=== PATIENT | female | born 1950 | race Caucasian/White ===

== ENCOUNTER 2018-07-19 10:33 | Day surgery (SDC) | payer MEDICARE, OTHER ==
[~2018-07-19 10:33] MED LIST: CEFAZOLIN 2 Gram 2 GM/50 ML BAG IVPB ONE; CELECOXIB 100 MG CAPSULE PO ONE; FAMOTIDINE 20MG TABLET PO ONE; MECLIZINE 25 MG TABLET PO ONE; METOCLOPRAMIDE 10 MG TABLET PO ONE; VANCOMYCIN HCL 1,000 MG in DEXTROSE 5 % IN WATER 250 ML IVPB ONE
[2018-07-19] MEDS ORDERED: 0.9 % SODIUM CHLORIDE 10 ML VIAL IVP ONE (10:34)
[2018-07-19] MEDS ORDERED: MIDAZOLAM HCL 2MG/2ML VIAL IV ONE (10:34)
[2018-07-19] MEDS ORDERED: KETAMINE HCL 100MG/1ML VIAL INJ ONE (10:34)
[2018-07-19] MEDS ORDERED: GLYCOPYRROLATE 0.2 MG/ML ML IV ONE (10:34)
[2018-07-19] MEDS ORDERED: TRANEXAMIC ACID 1,000 MG/10 ML ML IV ONE (10:34)
[2018-07-19] MEDS ORDERED: DEXAMETHASONE 4 MG/ML 1ML VIAL IVP ONE (10:34)
[2018-07-19] MEDS ORDERED: PROPOFOL 10 MG/ML VIAL IV ONE (10:34)
[2018-07-19] MEDS ORDERED: ROPIVACAINE HCL (NAROPIN) /PF 5MG/ML 20ML VIAL IV ONE (10:34)
[2018-07-19] MEDS ORDERED: RINGERS SOLUTION,LACTATED 1,000 ML IV ONE ×3 (11:15→15:28)
[2018-07-19] MEDS ORDERED: SODIUM CHLORIDE 0.9% IV ONE (11:15)
[2018-07-19] MEDS ORDERED: GENTAMICIN SULFATE IV ONE (11:15)
[2018-07-19 11:38] LABS: ABO GROUP O; ANTIBODY SCREEN NEGATIVE (NEGATIVE); RH TYPE POSITIVE
[2018-07-19] MEDS ORDERED: BUPIVACAINE 0.5% W/EPI MPF 30 ML VIAL SQ ONE (15:02)
[2018-07-19] MEDS ORDERED: ACETAMINOPHEN 325 MG TAB PO PRN (16:26)
[2018-07-19] MEDS ORDERED: DIPHENHYDRAMINE HCL 25 MG CAPSULE PO PRN (16:26)
[2018-07-19] MEDS ORDERED: ONDANSETRON HCL IV 4 MG/2 ML VIAL IVP PRN (16:26)
[2018-07-19] MEDS ORDERED: NALOXONE 0.4 MG/1 ML VIAL IVP PRN (16:26)
[2018-07-19] MEDS ORDERED: KETOROLAC 30 MG/ML VIAL IVP PRN ×2 (16:26)
[2018-07-19] MEDS ORDERED: HYDROCODONE/APAP 10/325 TABLET PO PRN (16:26)
[2018-07-19] MEDS ORDERED: MAGNESIUM HYDROXIDE 30 ML UDC PO PRN (16:26)
[2018-07-19] MEDS ORDERED: TRAMADOL HCL 50 MG TABLET PO PRN (16:26)
[2018-07-19] MEDS ORDERED: BISACODYL 10 MG SUPP RC PRN (16:26)
[2018-07-19] MEDS ORDERED: ZOLPIDEM TARTRATE 5 MG TABLET PO PRN (16:26)
[2018-07-19] MEDS ORDERED: AL HYDROX/MAG HYDROX 30ML UD PO PRN (16:26)
[2018-07-19] MEDS ORDERED: HYDROMORPHONE HCL 2 MG/ML VIAL IM PRN (16:26)
[2018-07-19] MEDS ORDERED: ACETAMINOPHEN W/ CODEINE 300MG/60MG TABLET PO PRN ×2 (16:26)
[2018-07-19] MEDS ORDERED: CEFAZOLIN 2 Gram 2 GM/50 ML BAG IVPB SCH (16:30)
[2018-07-19] MEDS ORDERED: ALBUTEROL HFA 8 GM INHALER INH PRN (16:51)
[2018-07-19] MEDS ORDERED: ALBUTEROL SULFATE (0.083%) 2.5 MG/3 ML NEB INH PRN (16:51)
[2018-07-19] MEDS: HYDROCODONE/APAP 10/325 TABLET PO PRN ×2 (19:20→22:35)
[2018-07-19] MEDS: DOCUSATE SODIUM 100 MG CAPSULE PO SCH (22:35)
[2018-07-19] MEDS: CEFAZOLIN 1G VIAL IVP SCH (22:36)
[2018-07-20] MEDS: POTASSIUM CHLORIDE/D5-0.9%NACL 20 MEQ/1,000 ML BAG IV SCH ×3 (01:13→10:41)
[2018-07-20] MEDS: HYDROCODONE/APAP 10/325 TABLET PO PRN ×4 (02:59→13:35)
[2018-07-20] MEDS: CEFAZOLIN 1G VIAL IVP SCH ×3 (05:50→15:35)
[2018-07-20 06:48] LABS: HEMATOCRIT 33.4 % (35.0-47.0); HEMOGLOBIN 10.9 gm/dl (11.6-16.0)
[2018-07-20] MEDS ORDERED: LEVOTHYROXINE SODIUM 100 MCG TABLET PO SCH (07:00)
[2018-07-20] MEDS ORDERED: PANTOPRAZOLE SODIUM 40 MG TABLET PO SCH (07:00)
[2018-07-20 07:02] LABS: BLOOD UREA NITROGEN 9 mg/dL (8-23); CREATININE 0.6 mg/dL (0.5-0.9); EST GLOMERULAR FILTRATION RATE > 60 mL/min; GLUCOSE,RANDOM 161 mg/dL (74-109)
--- NOTE | 2018-07-20 08:50 | Operative Note ---
DATE OF SURGERY: 07/19/2018 PREOPERATIVE DIAGNOSIS: End-stage arthrosis of the left knee. POSTOPERATIVE DIAGNOSIS: End-stage arthrosis of the left knee. OPERATION: Cemented left total knee arthroplasty using Mel[employer]za [employer] Augustina II components with a size 5 Oxinium femur, a size 4 stem tibia baseplate, a 9 mm lipped highly crosslinked tibial insert, and a 32 mm all plastic patella. STAFF SURGEON: Logan Antonio MD ANESTHESIA: Spinal. PREPARATION: Chloraprep. INDIVIDUAL CONSIDERATIONS: None. PROCEDURE: The patient was taken to the operating room, placed supine on the operating room table. She had a successful induction of a spinal anesthetic. The left lower extremity was prepped and draped in the usual fashion. The limb was elevated and tourniquet was inflated to 250 mmHg. The patient had a midline approach to the knee. Sharp dissection carried down through skin and subcutaneous tissue. Small veins were coagulated with a Bovie. A medial arthrotomy was performed. The patella was everted and the knee was flexed. The patient had exposed bone in the medial and patellofemoral compartments. Fat pad was resected, ACL was sacrificed, and provisional anterior meniscectomies were performed. The capsule was released from the medial proximal tibia. The initial femoral ferry pilot hole was then made freehand. The intramedullary femoral cutting jig was placed. It was cut in 7.0 degrees of valgus and adjusted for rotation for a 10 mm resection. The initial transverse cut was then made. The skin guide was placed in the anterior and posterior ferry pilot holes. It was found that a size 5 would be appropriate. The anterior and posterior cuts followed by chamfer cuts were made. Osteophytes removed, and a size 5 trial was placed and found to fit well. The tibia was brought forward, and the remainder of the meniscal remnants removed with a Bovie. The extraarticular tibial cutting jig was placed. It was cut in neutral with a 3-degree AP slope. Care was taken to adjust for rotation and flexion using the extraarticular alignment guide and bony landmarks. It was set for a 9 mm resection keyed off the high lateral side and secured with pins. When cutting the tibia, care was taken to preserve the PCL insertion on the tibia. After removing osteophytes, I could fit a size 4. It was adjusted for rotation and secured with pins. With a 9 mm trial and femoral trial, there was excellent motion and stability. Ligamentous balance was thought to be normal. Femoral ferry pilot holes were impacted. Tri-flange tibial keel stamp was impacted, and these trial components were removed. The patient had a relatively thick patella, and roughly 9 mm of bone was removed with an oscillating saw. I could fit a 32 patella. The 3 ferry pilot holes were drilled. The tourniquet was let down briefly to get bleeders posteriorly and then placed back up again. The knee was then thoroughly irrigated out with pulsatile Betadine and saline to remove any visual or palpable debris. Bony surfaces were then dried. A size 4 stem tibia baseplate was cemented into place followed by impaction of the 9 mm lipped highly crosslinked tibial insert followed by cementing in the size 5 Oxinium femur followed by cementing in the 32 mm all plastic patella. The implant surfaces were compressed, excess cement was removed. After the cement had set, there was excellent motion and stability, ligamentous balance, rotation alignment, and patellofemoral tracking were normal. No lateral release was required. Tourniquet was let down. Hemostasis was obtained with a Bovie. The capsule, periosteum, skin, and subcu were infiltrated with 30 mL of 0.5% Marcaine with epinephrine. The capsule was then closed with a running #2 quill, subcu was closed in layers with running 0 quill, skin was closed with darian. The patient did receive 1 g of tranexamic acid IV preoperatively. I mixed 1 g of tranexamic acid with 30 mL of saline and injected into the knee through a sterile 18-gauge needle, and a sterile bulky compressive UMER-type dressing was applied. The patient tolerated the procedure well. Needle and sponge counts were correct. Estimated blood loss was minimal, and she was taken back to recovery in good condition. There were no complications. IVAN
[2018-07-20] MEDS ORDERED: FERROUS SULFATE 325 MG TAB PO SCH (10:00)
[2018-07-20] MEDS ORDERED: ATORVASTATIN 20 MG TABLET PO SCH (10:00)
[2018-07-20] MEDS ORDERED: RIVAROXABAN 10 MG TABLET PO SCH (10:00)
[2018-07-20] MEDS ORDERED: LEVOFLOXACIN 500 MG TABLET PO SCH (10:00)
[2018-07-20] MEDS ORDERED: METFORMIN 500 MG TABLET PO SCH (10:00)
[2018-07-20] MEDS ORDERED: LISINOPRIL 20 MG TABLET PO SCH (10:00)
[2018-07-20] MEDS: HYDROCHLOROTHIAZIDE 12.5 MG CAPSULE PO SCH ×3 (10:24→10:39)
[2018-07-20] MEDS: DOCUSATE SODIUM 100 MG CAPSULE PO SCH (10:25)
--- NOTE | 2018-07-20 12:40 | Rehab Evaluation ---
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 SKIN CA REMOVED FACE AND SHOULDERS C SCOPES DOUBLE MASTECTOMY 2016 PARTIAL HYST PMH - Respiratory Hx Respiratory Disorders Yes Hx Asthma Yes: SEASONAL AND WHEN SHES SICK Hx Bronchitis Yes Hx Pneumonia Yes Hx Sleep Apnea Yes: MILD IN PAST NO PROBLEMS NOW Hx of URI Yes: PT HAS HAD URI JUST FINISHING 3 RD COURSE OF ABX RESOLVING Comment: PT HAS INHALER AND NEBULIZER SHE USES WITH SEASON CHANGES AND WHEN ILL PMH - Cardiovascular Hx Cardiovascular Disorders Yes Hx Hypertension Yes: ON MEDS WITH GOOD CONTROL Exercise Tolerance Good Comment: HYPERLIPIDEMIA PMH - Neuro Hx Neurological Disorders Yes Hx Headaches Yes: WITH WEATHER CHANGES PMH - GI Hx Gastrointestinal Disorders Yes Hx Gastroesophageal Reflux Yes: ON MEDS WITH GOOD CONTROL PMH - Hx Genitourinary Disorders No PMH - Endocrine Hx Endocrine Disorders Yes Hx Diabetes Yes: DX MANY YEARS AGO Hx of NIDDM Yes: ON METFORMIN Comment: A1C 6 DOENT CHECK BLOOD SUGARS PMH - Musculoskeletal Hx Musculoskeletal Disorders Yes Hx Arthritis Yes: LEFT KNEE PMH - Psych Hx Psychiatric Problems No PMH - Hematology/Oncology Hx Hematology/Oncology Yes Disorders Hx Cancer Yes: SKIN AND BREAST HAD BILAT MASTECTOMY Hx Chemotherapy No Hx Radiation Therapy No Premorbid Status: Detail (Pt lives with spouse in a 2 story house. She has 3 steps at the front entrance, no railing and 6 steps at the rear entrance with railings. She is planning to stay on the main level initially. She has a claw foot bathtub on the second story and a standard height toilet, no grab bars. She is typically responsible for all home mgmt, meal prep and laundry although her spouse will be assisting after discharge. She has a 2 wheeled walker, canes and a wheelchair.) Precautions: [place], Fall, Other (WBAT left LE) - Time With Patient Total Time Spent With Patient (Min): 30 Treatment Procedures: Detail (OT eval low complexity) Subjective Information - Subjective Information Per Patient Objective Data - Pain Pain Present: Yes (05/29) - Mental Status Patient Orientation: Oriented x3 - Visual Perception Appears within normal limits for therapeutic activities - ROM Within normal limits (Pito UE AROM WNL) - Strength/Tone Within normal limits (Pito UE strength WNL) - Coordination Appears within normal limits for therapeutic activities - Bed Mobility Independent (Ind with supine to sit and sit to supine.) - Transfers Independent (Ind with sit to stand from EOB and toilet heights.) - Balance Balance Sitting: Good Balance Standing: Good - Sensation Intact - Gait Detail (Pt ambulating in room with 2 wheeled walker Indly.) - ADL's/IADL's Detail (Pt educated and able to demonstrate Ind with modified LE dressing technique including doffing slipper socks and briefs and donning underwear, shorts, socks and slip on shoes. Reviewed kitchen and bathroom safety and modifications, pt verbalized understanding.) Therapy Assessment - Therapy Assessment Detail (Pt is safe and Ind with modified LE dressing techniques.) Problem List - Problem List Occupational Therapy Problem List: Detail (No current IP OT problems identified. ) Goals - Goals Occupational Therapy Goals: No current IP OT goals identified. Prognosis - Prognosis Good Plan - Plan Occupational Therapy Plan: No further IP OT recommended. Thank you for this referral.
--- NOTE | 2018-07-20 12:46 | Rehab Evaluation ---
Patient Information - Patient Information Diagnosis: L knee OA Ordered Treatment: PT Evaluate and Treat Status: Initial Evaluation Surgery: Yes (L TKA) Date of Surgery: 07/19/18 Past Medical/Surgical Hx: PAST MEDICAL/SURGICAL HISTORY Past Surgical History BIG TOE RIGHT FOOT FUSION COLON RESECTION D/T POLYP LIPOMAS SKIN CA REMOVED FACE AND SHOULDERS C SCOPES DOUBLE MASTECTOMY 2016 PARTIAL HYST PMH - Respiratory Hx Respiratory Disorders Yes Hx Asthma Yes: SEASONAL AND WHEN SHES SICK Hx Bronchitis Yes Hx Pneumonia Yes Hx Sleep Apnea Yes: MILD IN PAST NO PROBLEMS NOW Hx of URI Yes: PT HAS HAD URI JUST FINISHING 3 RD COURSE OF ABX RESOLVING Comment: PT HAS INHALER AND NEBULIZER SHE USES WITH SEASON CHANGES AND WHEN ILL PMH - Cardiovascular Hx Cardiovascular Disorders Yes Hx Hypertension Yes: ON MEDS WITH GOOD CONTROL Exercise Tolerance Good Comment: HYPERLIPIDEMIA PMH - Neuro Hx Neurological Disorders Yes Hx Headaches Yes: WITH WEATHER CHANGES PMH - GI Hx Gastrointestinal Disorders Yes Hx Gastroesophageal Reflux Yes: ON MEDS WITH GOOD CONTROL PMH - Hx Genitourinary Disorders No PMH - Endocrine Hx Endocrine Disorders Yes Hx Diabetes Yes: DX MANY YEARS AGO Hx of NIDDM Yes: ON METFORMIN Comment: A1C 6 DOENT CHECK BLOOD SUGARS PMH - Musculoskeletal Hx Musculoskeletal Disorders Yes Hx Arthritis Yes: LEFT KNEE PMH - Psych Hx Psychiatric Problems No PMH - Hematology/Oncology Hx Hematology/Oncology Yes Disorders Hx Cancer Yes: SKIN AND BREAST HAD BILAT MASTECTOMY Hx Chemotherapy No Hx Radiation Therapy No Premorbid Status: Detail (The patient was independent with all mobility prior to surgery.) Social History: Detail (The patient lives with spouse in 2 story house with 6 steps at the enterance and one railing. The patient will be living on first floor. The patient has a tub with a hand held shower and a standartd height toilet. No grab bars are present in the bathroom. The patient has a front wheeled walker and standard cane.) Precautions: [place], Fall, Other (WBAT on the L LE.) - Time With Patient Total Time Spent With Patient (Min): 30 Treatment Procedures: Detail (Initial Evaluation and gait training.) Subjective Information - Subjective Information Per Patient (The patient has minimal complaints of aching type of pain.) Objective Data - Mental Status Patient Orientation: Oriented x3 - Visual Perception Appears within normal limits for therapeutic activities - ROM Not within normal limits (The patient's L knee AROM was limited s/p surgery. The patient's all LE AROM was WNL.) - Strength/Tone Not within normal limits (The patient's L LE strength was not tested s/p surgery however was functional ie: patient was able to complete a SLR. The patient's R LE was 4+ to 5/5.) - Bed Mobility Independent (The patient was independent with supine to and from sit transfer.) - Transfers Independent (The patient was independent with sit to and from stand transfer.) - Balance Balance Sitting: Good Balance Standing: Good - Gait Detail (The patient ambulated with a front wheeled walker a distance of 108 feet x 1 WBAT on L LE. The patient ambulated on stairs using proper technique with supervision for safety only.) Therapy Assessment - Therapy Assessment Detail (The patient is independent with all mobility and ambulation. The patient is discharged from inpatient PT.) Patient Education - Patient Education Teaching Topic: Exercise/Activity (The patient was independent with HEP of ankle pumps, heel slides, quad sets, hamstring sets, gluteal sets and SLR.) Response: Return Demonstration Teaching Method: Discussion, Demonstration, Handout Teaching Recipient: Patient Barriers To Learning: None Problem List - Problem List Physical Therapy Problem List: Detail (1) Decreased L knee AROM and L LE strength as to be expected following surgery.) Goals - Goals Physical Therapy Goals: The patient has met all inpatient PT goals Plan - Plan Physical Therapy Plan: The patient is discharged from inpatient PT and is to continue with Home PT.
== END 2018-07-20 13:50 | disposition home health service (06) ==
LOC: SUR 10:33 → MEDSURG 16:43 → SUR 07-20 13:50
PROVIDERS: ATTEND Orthopaedic Surgery
DX: M17.12 Unilateral primary osteoarthritis, left knee (principal); I10 Essential (primary) hypertension; E78.00 Pure hypercholesterolemia, unspecified; J45.909 Unspecified asthma, uncomplicated
CPT/HCPCS: 27130; 01214; 64447; 85018; 85014; 80048; 36416; 82948; 86900; 86901; 86850; 76942; J1885; J3370; J0690; J3490 ×4; J2795; C1776; J3480; J7060; J7120